=== PATIENT | female | born 2000 | race Caucasian/White ===

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

== ENCOUNTER 2023-07-20 15:15 | Inpatient (IN) | payer OTHER ==
[2023-07-20 16:59] LABS: Appearance,Urine Cloudy (Clear); Bilirubin,Urine Negative (Negative); Blood,Urine Negative (Negative); Color,Urine Yellow; Glucose,Urine (UA) Negative (Negative); Ketones,Urine Negative (Negative); Leukocyte Esterase,Urine Large (Negative); Mucus,Urine Many /hpf; Nitrite,Urine Negative (Negative); Protein,Urine Trace (Negative); RBC,Urine 1 /hpf (0-5); Specific Gravity,Urine 1.026 (1.001-1.035); Squamous Epithelial Cell,Urine 10 /hpf (0-4); Urobilinogen,Urine <2.0 mg/dL (<2.0); WBC,Urine 14 /hpf (0-5)
[2023-07-20 17:03] LABS: Amphetamine Screen,Urine Not Detected (NotDetected); Barbiturate Screen,Urine Not Detected (NotDetected); Benzodiazepines Screen,Urine Not Detected (NotDetected); Cocaine Screen,Urine Not Detected (NotDetected); Methadone Screen, Urine Not Detected (NotDetected); Opiate Screen,Urine Not Detected (NotDetected); Oxycodone Screen, Urine Not Detected (NotDetected); Phencyclidine Screen,Urine Not Detected (NotDetected); Tricyclic Antidepressant,Urine Not Detected (NotDetected); Urn Cannabinoid Scrn Not Detected (NotDetected)
[2023-07-20] MEDS: LACTATED RINGERS 1,000 ML IV ONE (17:30)
[2023-07-20 17:55] LABS: Anisocytosis Slight; Basophils # (A) 0.1 k/uL (0-0.2); Basophils % (A) 1 %; Eosinophils # (A) 0.2 k/uL (0-0.7); Eosinophils % (A) 2 %; HCT 32.6 % (34.0-46.0); HGB 10.5 gm/dL (11.4-16.0); Lymphocytes # (A) 1.4 k/uL (1.0-4.8); Lymphocytes % (A) 16 %; MCH 26.2 pg (25.0-35.0); MCHC 32.1 g/dL (31.0-37.0); MCV 81.6 fL (80.0-100.0); Mean Platelet Volume 7.8; Monocytes % (A) 11 %; Neutrophils % (A) 66 %; Platelet Count 224 k/uL (150-450); RBC 3.99 m/uL (3.80-5.40); RDW 16.2 % (11.5-15.5); WBC 9.1 k/uL (3.8-10.6)
--- NOTE | 2023-07-20 18:05 | US ---
EXAMINATION TYPE: US OB >= 14 wk fetus DATE OF EXAM: 07/20/2023 COMPARISON: None CLINICAL INDICATION: Female, 23 years old with history of no care 41.3; growth and position. Patient is small only gained 16 pounds no care. TECHNIQUE: Transabdominal (TA) GESTATIONAL AGE / DATING Physician Established: Not yet established Dates by LMP: (41 weeks/3 days) EDC: 07/10/2023 Dates by First Scan: No previous this is first scan Dates by Current Scan: (38 weeks/4 days) EDC: 07/30/2023 SURVEY IUP: Single PLACENTA: Anterior PREVIA: No Previa ARNIE: 8 cm Normal CERVICAL LENGTH (transabdominal: norm > 3.0cm): 3.6 cm .) BIOMETRY PRESENTATION: Vertex LIE: Longitudinal BPD: 9.88 cm 40 weeks / 4 days HC: 35.47 cm 41 weeks / 4 days AC: 30.61 cm 34 weeks / 4 days FL: 7.31 cm 37 weeks / 3 days ESTIMATED WEIGHT IN GRAMS: 3000 grams ESTIMATED WEIGHT IN LBS/OZ: 6 lbs. 10 oz. WEIGHT PERCENTAGE BASED ON ESTABLISHED DATES; HC/AC: 1.16cm Normal FL/AC: 74% Normal HEART RATE: 136 bpm RHYTHM: Normal IMPRESSION: Single viable intrauterine as described above. This is a limited exam is not performed to e valuate anatomy for anomalies or abnormalities.
[2023-07-20] MEDS ORDERED: OXYTOCIN 10 UNIT/ML 1 ML VIAL IM PRN (18:43)
[2023-07-20] MEDS ORDERED: TERBUTALINE 1 MG/ML VIAL SQ PRN (18:43)
[2023-07-20] MEDS ORDERED: LIDOCAINE 0.5% (PF) 5 MG/ML (50 ML SDV) SQ PRN (18:43)
[2023-07-20] MEDS ORDERED: METHYLERGONOVINE 0.2 MG/ML 1 ML AMP IM PRN (18:43)
--- NOTE | 2023-07-20 19:37 | P.HPOB ---
History of Present Illness H&P Date: 07/20/23 Chief Complaint: Cramping Ms. Figueroa is a 23 year old at 41 weeks and 3 days by 6 week US who presents to triage with complaints of cramping. The fetus is noted to have a prolonged deceleration shortly after being placed on the monitor. The patient has had no care this . On ultrasound in triage today, the fetus is 6 pounds and 1 ounce. The fetus is also noted to be cephalic. Staff labs are ordered and the patient is admitted for induction of labor. The patient is noting good movement, denies leakage of fluid, and denies vaginal bleeding. Past medical history: asthma (has improved during the , rarely needs an inhaler) Past surgical history: patient denies Social history: patient vapes nicotine, otherwise negative Past Medical History Past Medical History: Asthma History of Any Multi-Drug Resistant Organisms: None Reported Past Surgical History: No Surgical Hx Reported Smoking Status: Vaper Medications and Allergies Allergies Allergy/AdvReac Type Severity Reaction Status Date / Time egg Allergy Anaphylaxis Verified 09/08/21 03:02 tree nut [Nut] Allergy Dyspnea Verified 09/08/21 03:02 Latex, Natural Rubber AdvReac Rash/Hives Verified 07/20/23 15:43 Exam Vital Signs Temp Pulse Resp BP 07/20/23 15:42 97.8 F 85 16 123/72 Intake and Output 07/20/23 07/20/23 07/20/23 06:59 14:59 22:59 Other: Weight 58.967 kg Focused physical exam is performed. This is a healthy-appearing in no apparent distress. Breathing is non-labored. Abdomen is gravid and non-tender. Cervical exam is 3 cm, 80 effacement, -3 station. AROM is undertaken with clear fluid noted. Extremities non-tender and non-edematous. heart tones on NST are currently reactive, but there was a prolonged deceleration in triage as noted in the H&P. Results Result Diagrams: 07/20/23 17:27 07/20/23 17:27 Abnormal Lab Results - Last 24 Hours (Table) 07/20/23 07/20/23 Range/Units 16:19 17:27 Hgb 10.5 L (11.4-16.0) gm/dL Hct 32.6 L (34.0-46.0) % RDW 16.2 H (11.5-15.5) % Urine Appearance Cloudy H (Clear) Urine Protein Trace H (Negative) Ur Leukocyte Esterase Large H (Negative) Urine WBC 14 H (0-5) /hpf Ur Squamous Epith Cells 10 H (0-4) /hpf Urine Mucus Many H (None) /hpf Assessment and Plan Assessment: 23 year old at 41 weeks and 3 days with prolonged deceleration in triage, no care Plan: Admit, NPO, pitocin per protocol, s/p AROM, epidural/nitrous prn, continuous EFM and tocometer, close monitoring of patient. GBS unknown - will start IV PCN G if rupture is prolonged, per ACOG. Time with Patient: Greater than 30 (35 minutes)
[2023-07-20] MEDS: OXYTOCIN 30 UNITS/500 ML NS 30 UNIT in SALINE 1 500ML.BAG IV SCH (19:48)
[2023-07-20] MEDS: LACTATED RINGERS 1,000 ML IV SCH (19:49)
[2023-07-20] MEDS: NALBUPHINE 10 MG/ML (10 ML MDV) IV PRN (21:21)
[2023-07-20] MEDS ORDERED: SODIUM CHLORIDE 0.9% 250 ML BAG ONE (22:55)
[2023-07-20] MEDS ORDERED: fentaNYL (PF) 50 MCG/ML 5 ML AMP ONE (22:55)
[2023-07-20] MEDS ORDERED: ROPIVACAINE 5 MG/ML 30 ML VIAL ONE (22:55)
[2023-07-21] MEDS: CITRIC ACID-SODIUM CITRATE 15 ML CUP PO ONE (01:55)
[2023-07-21] MEDS ORDERED: METHYLERGONOVINE 0.2 MG/ML 1 ML AMP ONE (02:04)
[2023-07-21] MEDS ORDERED: fentaNYL (PF) 50 MCG/ML 2 ML AMP ONE (02:04)
[2023-07-21] MEDS ORDERED: PHENYLEPHRINE-0.9% NACL SYG 1,000 MCG/10 ML SYRINGE ONE (02:04)
[2023-07-21] MEDS ORDERED: MORPHINE SULFATE (PF) 0.3 MG/0.3 ML SYR ONE (02:04)
[2023-07-21] MEDS ORDERED: GLYCOPYRROLATE 0.2 MG/ML 2 ML VIAL ONE (02:04)
[2023-07-21] MEDS ORDERED: KETOROLAC 15 MG/ML 1 ML VIAL ONE (02:04)
[2023-07-21] MEDS ORDERED: ONDANSETRON 4 MG/2 ML VIAL ONE (02:04)
[2023-07-21] MEDS ORDERED: OXYTOCIN 30 UNITS/500 ML NS BAG IV ONE (02:04)
[2023-07-21] MEDS ORDERED: diphenhydrAMINE 50 MG/ML 1 ML VIAL IVP PRN ×2 (03:06)
[2023-07-21] MEDS ORDERED: ZOLPIDEM 5 MG TAB PO PRN (03:06)
[2023-07-21] MEDS ORDERED: ONDANSETRON 4 MG/2 ML VIAL IVP PRN (03:06)
[2023-07-21] MEDS ORDERED: diphenhydrAMINE 25 MG CAP PO PRN (03:06)
[2023-07-21] MEDS ORDERED: METOCLOPRAMIDE 5 MG/ML 2 ML VIAL IVP PRN (03:06)
[2023-07-21] MEDS ORDERED: NALOXONE 0.4 MG/ML 1 ML VIAL IV PRN (03:06)
[2023-07-21] MEDS ORDERED: diphenhydrAMINE 50 MG CAP PO PRN (03:06)
--- NOTE | 2023-07-21 03:21 | P.OP ---
Date of Procedure: 07/21/23 Preoperative Diagnosis: 1. Term IUP at 41 weeks and 4 days 2. No care 3. Persistent Category II Heart Tones remote from delivery Postoperative Diagnosis: Same Procedure(s) Performed: Primary Lower Transverse Section Implants: None Anesthesia: epidural Surgeon: Aline Fernandes [employer] Operator #1: Ramila Correa Estimated Blood Loss (ml): 1,199 IV fluids (ml): 1,100 Urine output (ml): 500 (clear yellow) Pathology: other (placenta) Condition: stable Disposition: floor Indications for Procedure: Ms. Figueroa is a 23 year old at 41 weeks and 3 days with complaints of cramping. She has received no care during the . The fetus also had a prolonged deceleration in triage. Induction was recommended for post-dates and decelerations. The patient made good cervical change from 3 to 9 centimeters with pitocin per protocol and amniotomy. However, there were persitent Category II FHTs. These were managed following algorithm including initiation of corrective measures of fluid boluses, supplemental oxygen, and position changes. With the persistent presence of recurrent and depp late decelerations, a patient-centered huddle was held and the need for an expedited deliver was discussed with the patient. It is our clinical recommendation to proceed with the delivery and after questions were answered to the patient agrees to proceed with the recommended plan. The risks, benefits, and alternatives to section were discussed with the patient including risk of bleeding, infection, damage to surrounding structures including bladder/bowels/ureters, and post-operative VTE. The patient understands these risks and desires to proceed with section. Operative Findings: Clear amniotic fluid, fetus in occiput posterior presentation, viable male weighing 6 poudns and 13 ounces (3090 grams). Normal uterus, bilateral fallopian tubes, and ovaries. Description of Procedure: The patient was taken to the operating room where spinal anesthesia was found to be adequate. Two grams of Ancef were given for infection prophylaxis. Vaginal prep was performed prior to the surgery. She was prepared and draped in the dorsal supine position with a leftward tilt. A Pfannenstiel skin incision was made with the scalpel. The incision was carried down to the fascia. The fascia was incised and extended bluntly off the underlying rectus muscle. The rectus muscle was in the midline down to the level of the pubic symphysis. Pre-peritoneal fatty tissue was bluntly dissected to expose the peritoneum. The peritoneum was found to be free of adherent bowel and entered sharply with Fernandez scissors. The peritoneal incision was extended superiorly and inferiorly to the bladder reflection with good visualization of the bladder. The bladder blade was inserted and vesicouterine peritoneum was identified. Intraabdominal survey revealed scant, clear peritoneal fluid and the thinned-out lower uterine segment. The bladder blade was repositioned to keep the bladder out of the operative field. The lower uterine segment was incised with a scalpel. The amniotic sac was ruptured with an Allis clamp and clear fluid was noted. The uterine incision was extended bluntly with lateral and upward traction. The fetus was in occiput posterior position. The head was elevated out of the pelvis with special attention paid to avoid using the uterine incision as a fulcrum. Gentle fundal pressure was applied once the head was brought into the incision. The was delivered with no difficulty. The mouth and nose were suctioned with a bulb. The cord was clamped and cut. Infant was noted to be spontaneously crying. The was handed off to the special events manager. IV oxytocin was initiated to facilitate uterine contractions. The placenta was delivered intact with manual massage of uterine fundus. The uterus was then exteriorized and the inside of the uterus was gently wiped with a lap sponge to assure complete removal of placental membranes. The uterine incision was closed with a 0- Polysorb suture in a running locked fashion. A second imbricating layer of 0- Polysorb was placed along the incision. Additional figure of eight sutures were placed along the hysterotomy to facilitate hemosasis. The ovaries and tubes were found to be normal. The uterus, tubes, and ovaries were then gently returned to the abdominal cavity. The blood clots and fluid were wiped out of the abdomen and pelvis with moist laparotomy sponges. The pelvis was copiously suction irrigated.The uterine incision was reinspected and excellent hemostasis was noted. The fascial layer was closed with a 0-Vicryl suture. The subcutaneous tissue was reapproximated with 2-0 Plain Gut. The skin was closed with 4-0 Monocryl in a subcuticular fashion. The patient tolerated the procedure well. All the counts were correct times two. Immediately post-operative, the uterus was expressed and 678 cc of blood clots were evacuated. The decision was made to give methergine at this time for uterine atony. Bimanual massage was performed. The patient was taken to the recovery room in a stable condition. Once in the room, the uterus was again expressed for 221 cc of blood. A dose of IM Hemabate was given for hemorrhage. Bleeding was minimal and uterine fundus was firm below the umbilicus at this time.
[2023-07-21] MEDS: CARBOPROST TROMETHAMINE 250 MCG/ML 1 ML AMP IM PRN (04:07)
[2023-07-21] MEDS: LACTATED RINGERS 1,000 ML IV SCH (04:11)
[2023-07-21] MEDS: TRANEXAMIC 1,000 MG/100ML-NACL 1,000 MG in EMPTY BAG 1 BAG IV PRN (05:03)
[2023-07-21 05:16] LABS: Hepatitis B Surface Antigen Nonreactive (Nonreactive)
[2023-07-21] MEDS: miSOPROStoL 200 MCG TAB PO PRN (05:43)
[2023-07-21 05:55] LABS: HIV 2 AB Non-Reactive (Non-Reactive); HIV AB P24 Non-Reactive (Non-Reactive); HIV P24 AG Non-Reactive (Non-Reactive)
[2023-07-21] MEDS: miSOPROStoL 200 MCG TAB RECTAL STA (05:59)
[2023-07-21 06:07] LABS: Anisocytosis Slight; HCT 23.6 % (34.0-46.0); Hypochromasia Moderate; MCH 26.4 pg (25.0-35.0); MCHC 31.3 g/dL (31.0-37.0); MCV 84.4 fL (80.0-100.0); Mean Platelet Volume 8.3; Platelet Count 284 k/uL (150-450); RDW 16.5 % (11.5-15.5); WBC 16.9 k/uL (3.8-10.6)
--- NOTE | 2023-07-21 06:28 | P.PN ---
Progress Note - Text Progress Note Date: 07/21/23 I was called to the bedside by the patient's RN for increased bleeding, low temperature, low BPs 60s-70s/40s-50s, and pulse 130s. 1 gram TXA ordered IV. Rectal cytotec 1000mg placed. Bimanual massaged performed, blood clots evacuated. Millie intrauterine suction device inserted for persistent uterine atony. Patient to receive IVF bolus after TXA done infusing. Lon diehler is placed on patient. Total QBL since now estimated at 2704. Stat CBC pending. After placing Millie and treating with medications, pulse down to 80s-90s. Blood pressure improved to 70s-90s/50s-60s. Continue to monitor closely.
[2023-07-21 06:55] LABS: HGB 7.4 gm/dL (11.4-16.0)
[2023-07-21] MEDS: ACETAMINOPHEN TAB 500 MG TAB PO SCH (07:00)
[2023-07-21 07:54] LABS: Band Neutrophils % 6 %; Lymphocytes # (M) 1.86 k/uL (1.0-4.8); Monocytes # (M) 0.68 k/uL (0-1.0); Neutrophils % (M) 79 %; Nucleated Red Blood Cells 0 /100 WBC (0-0); Total Cells Counted 100
[2023-07-21 07:56] LABS: Ovalocytes Present
[2023-07-21] MEDS: KETOROLAC 15 MG/ML 1 ML VIAL IVP SCH (09:56)
[2023-07-21] MEDS: IBUPROFEN 600 MG TAB PO SCH (09:57)
[2023-07-21] MEDS: SENNOSIDES-DOCUSATE SODIUM 1 EACH TAB PO SCH (09:58)
--- NOTE | 2023-07-21 20:06 | P.PN ---
Progress Note - Text 07/21/23 841AM 23-year-old female status post , she received Duramorph the epidural catheter. Patient seen and evaluated for postop pain control she has a VAS of 5 with no complaints of nausea vomiting or pruritus.
[2023-07-22 07:33] LABS: Anisocytosis Slight; Basophils % (A) 0 %; Eosinophils # (A) 0.2 k/uL (0-0.7); Eosinophils % (A) 2 %; Lymphocytes # (A) 1.3 k/uL (1.0-4.8); Lymphocytes % (A) 12 %; MCH 27.3 pg (25.0-35.0); MCHC 32.5 g/dL (31.0-37.0); MCV 83.9 fL (80.0-100.0); Mean Platelet Volume 8.2; Monocytes # (A) 0.9 k/uL (0-1.0); Monocytes % (A) 8 %; Neutrophils # (A) 8.1 k/uL (1.3-7.7); Neutrophils % (A) 74 %; Poikilocytosis Slight; RDW 16.3 % (11.5-15.5); WBC 10.9 k/uL (3.8-10.6)
[2023-07-22 08:03] LABS: HGB 5.4 gm/dL (11.4-16.0)
[2023-07-22 08:04] LABS: HCT 16.8 % (34.0-46.0)
[2023-07-22 08:08] LABS: Platelet Count 148 k/uL (150-450)
--- NOTE | 2023-07-22 09:15 | P.PNOBGPC ---
Subjective - Subjective Principal diagnosis: s/p primary section Interval history: The patient is doing well this morning and had no acute events overnight. She has no complaints this morning. She reports minimal lochia, voiding without difficulty, ambulating, and eating/drinking without nausea or vomiting. Not yet passing flatus. She is her infant without difficulty. She denies chest pain, shortness of breathing, fevers, or chills overnight. She denies pain or swelling in the legs. She denies lightheadedness with ambulation. Patient reports: Reports appetite normal, Reports voiding normally, Reports pain well controlled, Reports ambulating normally [place]: doing well, nursing well Objective - Vital Signs Latest vital signs: Vital Signs Temp Pulse Pulse Resp BP BP Pulse Ox 07/22/23 04:19 97.4 F L 89 16 110/52 07/22/23 00:02 97 16 07/22/23 00:00 98.8 F 97 16 102/51 97 07/21/23 20:00 97.7 F 89 16 96/58 98 07/21/23 18:30 98.2 F 88 16 106/52 99 07/21/23 16:36 99.1 F 88 16 97/49 98 07/21/23 14:49 87 16 90/45 07/21/23 13:22 114 H 16 106/56 07/21/23 12:01 98.3 F 82 16 99/56 07/21/23 11:15 98.1 F 100 16 90/54 98 07/21/23 11:12 98.1 F 100 16 90/54 98 07/21/23 10:33 98.1 F 76 16 84/42 98 07/21/23 10:32 98.1 F 78 16 84/42 98 07/21/23 10:00 91 17 94/51 97 07/21/23 09:50 68 16 94/51 99 07/21/23 09:30 95 17 79/41 07/21/23 09:15 83 16 88/53 99 Intake and Output 07/21/23 07/22/23 07/22/23 22:59 06:59 14:59 Output Total 600 1150 Balance -600 -1150 Output: Urine 600 1150 Uretheral ([place]on) 200 Other: Voiding Method Indwelling Catheter - Exam Extremities: Present: normal Abdomen: Present: normal appearance, soft Incision: Present: normal, dry, intact Uterus: Present: normal, firm - Labs Labs: Abnormal Lab Results - Last 24 Hours (Table) 07/20/23 07/22/23 Range/Units 17:27 07:07 WBC 10.9 H (3.8-10.6) k/uL RBC 2.00 L (3.80-5.40) m/uL Hgb 5.4 L* D (11.4-16.0) gm/dL Hct 16.8 L* (34.0-46.0) % RDW 16.3 H (11.5-15.5) % Plt Count 148 L (150-450) k/uL Neutrophils # 8.1 H (1.3-7.7) k/uL Crossmatch See Detail Assessment and Plan Assessment: 23 year old now POD#1 s/p primary stat section for non- reassuring heart tones complicated by hemorrhage Plan: 1. Postoperative. Patient meeting all postoperative milestones appropriately. 2. hemorrhage. Patient VSS, asymptomatic at this time. Hgb 10.5 pre- op > 7.4 post-op with low BP > 1u pRBCs > 5.4 this AM > will transfuse a dditional 2 units > repeat AM CBC 3. No PNC this , c/SW 4. Viable male . Doing well at bedside, , s/p circumcision. Dispo: Anticipate discharge home tomorrow on POD#2 if Hgb stable.
[2023-07-22] MEDS: FERROUS SULFATE 325 MG TAB PO SCH (12:19)
[2023-07-23 08:09] LABS: Basophils % (A) 0 %; Eosinophils # (A) 0.3 k/uL (0-0.7); Eosinophils % (A) 2 %; HCT 26.7 % (34.0-46.0); Lymphocytes # (A) 1.2 k/uL (1.0-4.8); Lymphocytes % (A) 7 %; MCH 28.3 pg (25.0-35.0); MCHC 33.2 g/dL (31.0-37.0); MCV 85.3 fL (80.0-100.0); Monocytes # (A) 1.6 k/uL (0-1.0); Monocytes % (A) 9 %; Neutrophils % (A) 77 %; Platelet Count 174 k/uL (150-450); RBC 3.13 m/uL (3.80-5.40); WBC 16.9 k/uL (3.8-10.6)
[2023-07-23 08:13] LABS: HGB 8.9 gm/dL (11.4-16.0)
--- NOTE | 2023-07-23 08:22 | P.PNOBGPC ---
Subjective - Subjective Principal diagnosis: Postop day 2 Interval history: Feeling significantly better today. is bottlefeeding Patient reports: Reports appetite normal, Reports voiding normally, Reports pain well controlled, Reports ambulating normally [place]: doing well, bottle feeding Objective - Vital Signs Latest vital signs: Vital Signs Temp Pulse Pulse Resp BP BP BP 07/23/23 07:58 98.0 F 99 18 111/71 07/23/23 00:00 97.9 F 103 H 16 109/71 07/22/23 15:45 98.2 F 100 16 106/73 07/22/23 14:25 98.9 F 85 18 113/70 07/22/23 12:18 99.0 F 90 18 113/70 07/22/23 12:15 99.0 F 90 113/70 07/22/23 11:55 99.1 F 90 16 112/62 07/22/23 11:45 98.9 F 85 16 110/62 07/22/23 09:58 99.1 F 84 18 110/66 07/22/23 09:38 99.1 F 91 16 115/63 07/22/23 09:27 98.6 F 89 16 110/58 Pulse Ox 07/23/23 07:58 96 07/23/23 00:00 96 07/22/23 15:45 95 07/22/23 14:25 07/22/23 12:18 07/22/23 12:15 07/22/23 11:55 07/22/23 11:45 07/22/23 09:58 07/22/23 09:38 07/22/23 09:27 Intake and Output 07/22/23 07/23/23 07/23/23 22:59 06:59 14:59 Other: # Voids 2 2 - Exam Extremities: Present: normal. Absent: edema Abdomen: Present: normal appearance, soft Incision: Present: normal, dry, intact. Absent: erythematous Uterus: Present: normal, firm - Labs Labs: Abnormal Lab Results - Last 24 Hours (Table) 07/20/23 07/23/23 Range/Units 17:27 07:30 WBC 16.9 H (3.8-10.6) k/uL RBC 3.13 L (3.80-5.40) m/uL Hgb 8.9 L D (11.4-16.0) gm/dL Hct 26.7 L (34.0-46.0) % RDW 16.0 H (11.5-15.5) % Neutrophils # 13.0 H (1.3-7.7) k/uL Monocytes # 1.6 H (0-1.0) k/uL Crossmatch See Detail Assessment and Plan (1) 41 weeks gestation of Current Visit: Yes Status: Acute Code(s): O48.0 - POST-TERM ; Z3A.41 - 41 WEEKS GESTATION OF SNOMED Code(s): 26963102 (2) Acute blood loss anemia (ABLA) Narrative/Plan: Status post 1 unit packed red blood cells. Morning hemoglobin is 8.9, up from 5.4. Vital signs are stable. Current Visit: Yes Status: Acute Code(s): D62 - ACUTE POSTHEMORRHAGIC ANEMIA SNOMED Code(s): 077294386 (3) No care in current Current Visit: Yes Status: Acute Code(s): O09.30 - SUPRVSN OF PREG W INSUFFICIENT ANTENAT CARE, UNSP TRIMESTER SNOMED Code(s): 660857435 (4) Non-reassuring heart rate, delivered, current hospitalization Current Visit: Yes Status: Acute Code(s): O76 - ABNLT IN HEART RATE AND RHYTHM COMP LABOR AND DELIVERY SNOMED Code(s): 813681716 (5) Post-dates Current Visit: Yes Status: Acute Code(s): O48.0 - POST-TERM SNOMED Code(s): 76105427 (6) hemorrhage Current Visit: Yes Status: Acute Code(s): O72.1 - OTHER IMMEDIATE HEMORRHAGE SNOMED Code(s): 08165419 (7) S/P primary low transverse Current Visit: Yes Status: Acute Code(s): Z98.891 - HISTORY OF UTERINE SCAR FROM PREVIOUS SURGERY SNOMED Code(s): 625238469 Plan: Postop day 2 status post primary low transverse section secondary to nonreassuring heart tones, postdates and no care. She had hemorrhage which was actively managed. She did receive 1 unit packed red blood cells. Her hemoglobin this morning is 8.9 and she is asymptomatic with stable vital signs. Continue monitoring and possible discharge home tomorrow.
[2023-07-23 14:05] LABS: N. gonorrhoeae,PCR Negative (Negative)
[2023-07-23 14:11] LABS: C. trachomatis,PCR Negative (Negative)
[2023-07-24] MEDS: SIMETHICONE 80 MG CHEWABLE PO PRN (00:17)
--- NOTE | 2023-07-24 09:46 | P.DS ---
Providers Date of admission: 07/20/23 16:19 Expected date of discharge: 07/24/23 Attending physician: Aline Fernandes MD Primary care physician: Stated None - Discharge Diagnosis(es) (1) 41 weeks gestation of Current Visit: Yes Status: Acute (2) Acute blood loss anemia (ABLA) Current Visit: Yes Status: Acute (3) No care in current Current Visit: Yes Status: Acute (4) Non-reassuring heart rate, delivered, current hospitalization Current Visit: Yes Status: Acute (5) Post-dates Current Visit: Yes Status: Acute (6) hemorrhage Current Visit: Yes Status: Acute (7) S/P primary low transverse Current Visit: Yes Status: Acute Hospital Course: This is a 23-year-old 1 now para 1 woman who presented at 41+ weeks gestation with possible early labor. She had no care in the . During evaluation in labor and delivery triage the infant was noted to have a prolonged heart rate deceleration and the patient was admitted for induction of labor. Please see the admission history and physical for complete details. On admission she was 3 cm dilated and 80% effaced, group B strep prophylactic antibiotics were initiated. She did progress to 9 cm dilated however had persistent category 2 heart tones. Despite corrective measures these did not improve and she was taken for primary low transverse section. Findings at the time of surgery were significant for a male infant weighing 6 lbs. 13 oz. please see the delivery summary for details. There was intraoperative uterine atony that was managed with Pitocin and Methergine. When she was back on the floor she did receive a dose of IM Hemabate. This resolved for some time however several hours later she continued to have active bleeding that was then managed with transit eccentric acid, rectal Cytotec and placement of an intrauterine balloon device. Total blood loss for the events and surgery was approximately 2700 mL's. The patient did receive 1 unit of packed red blood cells after her hemoglobin nadired at 5.9. Following transfusion her hemoglobin was 8.9. She had no further excessive active uterine bleeding. On postop day 1 she was able to ambulate and void without difficulty and her vital signs had stabilized. By post operative day #2 she continued to do well with stable vital signs, minimal lochia and her incision was well healing. She was therefore discharged home on postoperative day #3 with iron and instructions for postoperative care and follow-up. Procedures: Primary low transverse section Patient Condition at Discharge: Good Plan - Discharge Summary New Discharge Prescriptions: New Ibuprofen [Motrin] 600 mg PO Q6HR PRN #30 tab PRN Reason: Mild Pain (Scale 1 To 3) Acetaminophen Tab [Tylenol] 650 mg PO Q6H PRN #30 tab PRN Reason: Mild Pain (Scale 1 To 3) Sennosides-Docusate Sodium [Senokot-S] 2 each PO BID@799,1999 #60 tab oxyCODONE HCL [Roxicodone] 5 mg PO Q6HR PRN 3 Days #12 tab PRN Reason: Breakthrough Pain Ferrous Sulfate [Iron (65 MG Elemental)] 325 mg PO W/LUNCH #60 tab Ibuprofen [Motrin] 600 mg PO Q6H PRN #30 tab PRN Reason: Pain Acetaminophen Tab [Tylenol] 1,000 mg PO Q6H PRN #30 tab PRN Reason: Pain Discharge Medication List Acetaminophen Tab [Tylenol] 650 mg PO Q6H PRN #30 tab 07/22/23 [Rx] Ibuprofen [Motrin] 600 mg PO Q6HR PRN #30 tab 07/22/23 [Rx] oxyCODONE HCL [Roxicodone] 5 mg PO Q6HR PRN 3 Days #12 tab 07/22/23 [Rx] Acetaminophen Tab [Tylenol] 1,000 mg PO Q6H PRN #30 tab 07/24/23 [Rx] Ferrous Sulfate [Iron (65 MG Elemental)] 325 mg PO W/LUNCH #60 tab 07/24/23 [Rx] Ibuprofen [Motrin] 600 mg PO Q6H PRN #30 tab 07/24/23 [Rx] Sennosides-Docusate Sodium [Senokot-S] 2 each PO BID@799,1999 #60 tab 07/24/23 [Rx] Follow up Appointment(s)/Referral(s): Aline Fernandes MD [STAFF PHYSICIAN] - 2 Weeks Activity/Diet/Wound Care/Special Instructions: Instructions 1. Do not begin any exercise program for 3 weeks. 2. Do not resume sexual relations for 6 weeks or longer if uncomfortable. 3. You may take tub baths or showers at any time. 4. You may use tampons if desired after 6 weeks. 5. Keep any areas repaired with stitches clean and dry. 6. If you are not nursing, wear a good fitting, supportive bra during the day and limit fluid intake for at least 1 week to prevent breast engorgement. 7. Call the office, , within the next week to make appointment for your 6 week checkup if it has not already been made. 8. Report any of the following occurrences to the doctor promptly: a. Heavy, excessive bleeding b. Chills, fever c. Burning or frequency of urination d. Pain or redness and breasts if nursing e. Increasing pain or swelling of vulva (stitches). In addition to the above instructions, the following additional should be followed: 1. No heavy lifting or straining (exercising) until after 6 week checkup. 2. Keep abdominal incision clean and dry: You may wear a dressing if more comfortable. 3. Make office appointment for 2 weeks after delivery date. Discharge Disposition: HOME SELF-CARE
[2023-07-24 12:28] VITALS: BP 105/70; PULSE 84; RESP 16; TEMP 98.6
== END 2023-07-24 13:45 | disposition home or self-care (01) | DRG 540 ==
LOC: FBPOP 15:15 → 4FBP 16:19
PROVIDERS: ADMIT Obstetrics & Gynecology; ATTEND Obstetrics & Gynecology
PROC: 10907ZC Drainage of Amniotic Fluid, Therapeutic from Products of Conception, Via Natural or Artificial Opening (ICD-10-PCS; 2023-07-21)
PROC: 4A0HXCZ Measurement of Products of Conception, Cardiac Rate, External Approach (ICD-10-PCS; 2023-07-21)
PROC: 30233N1 Transfusion of Nonautologous Red Blood Cells into Peripheral Vein, Percutaneous Approach (ICD-10-PCS; 2023-07-21)
PROC: 10D00Z1 Extraction of Products of Conception, Low, Open Approach (ICD-10-PCS; principal; 2023-07-21 02:04)
DX: O76 Abnormality in fetal heart rate and rhythm complicating labor and delivery (principal); D62 Acute posthemorrhagic anemia; J45.909 Unspecified asthma, uncomplicated; O48.0 Post-term pregnancy; O72.1 Other immediate postpartum hemorrhage; O90.81 Anemia of the puerperium; O99.52 Diseases of the respiratory system complicating childbirth; Z37.0 Single live birth; Z3A.41 41 weeks gestation of pregnancy; Z91.040 Latex allergy status; Z91.018 Allergy to other foods
CPT/HCPCS: 59025; 76805; 80306; 81001; 82947; 84112; 85025; 86762; 86780; 86850; 86900; 86901; 86920; 87081; 87340; 87390; 87491; 87591; 99213

== ENCOUNTER → 2024-08-27 | Outpatient (CLI) | payer OTHER ==
[2024-08-27 19:52] LABS: Basophils # (A) 0.04 X 10*3/uL (0.00-0.10); Basophils % (A) 0.5 %; Eosinophils # (A) 0.37 X 10*3/uL (0.04-0.35); Eosinophils % (A) 4.8 %; HGB 8.9 g/dL (12.0-15.0); Lymphocytes # (A) 1.31 X 10*3/uL (0.90-5.00); Lymphocytes % (A) 16.9 %; MCH 26.3 pg (27.0-32.0); MCHC 31.8 g/dL (32.0-37.0); MCV 82.6 FL (80.0-97.0); Mean Platelet Volume 10.4 FL (9.5-12.2); Monocytes # (A) 0.47 X 10*3/uL (0.20-1.00); Monocytes % (A) 6.1 %; NRBC Per 100 WBC 0 X 10*3/uL (0.00-0.01); Neutrophils # (A) 5.52 X 10*3/uL (1.80-7.70); Neutrophils % (A) 71.3 %; Platelet Count 225 X 10*3/uL (140-440); RBC 3.39 X 10*6/uL (4.10-5.20); RDW 15.2 % (11.5-14.5); WBC 7.74 X 10*3/uL (4.50-10.00)
[2024-08-28 00:54] LABS: Clam IgE <0.10 kU/L; Codfish IgE <0.10 kU/L; Egg White IgE 2.68 kU/L; Peanut IgE 0.25 kU/L; Scallop IgE <0.10 kU/L; Shrimp IgE <0.10 kU/L; Soybean IgE 0.15 kU/L; Walnut IgE (Food) <0.10 kU/L
[2024-08-28 12:57] LABS: Alpha 1 Anti-Trypsin 199 mg/dL (90 - 200)
== END | disposition home or self-care (01) ==
LOC: LABWHC1 14:23
PROVIDERS: ATTEND Internal Medicine Pulmonary Disease
DX: J45.51 Severe persistent asthma with (acute) exacerbation (principal); J44.9 Chronic obstructive pulmonary disease, unspecified; J30.9 Allergic rhinitis, unspecified; R06.02 Shortness of breath; R42 Dizziness and giddiness
CPT/HCPCS: 36415; 82103; 82104; 82306; 82785; 85025; 86001; 86003; 86606; 86609